=== PATIENT | female | born 1970 | race African-American/Black ===

== ENCOUNTER 2021-10-20 16:03 | Emergency (ER) | payer MEDICAID ==
[~2021-10-20] VITALS: Ht 157.5 cm; Wt 56.4 kg
[2021-10-20 17:05] LABS: BASO % 0.6 % (0.0-1.0); EOS # 0.1 10^3/uL (0.0-0.5); EOS % 0.8 % (0.0-3.0); HEMATOCRIT 37.8 % (36.0-47.0); HEMOGLOBIN 11.8 g/dl (12.0-15.5); LYMPH # 2.3 10^3/uL (1.5-5.0); LYMPH % 35.9 % (24.0-44.0); MEAN CORPUSCULAR HEMOGLOBIN 29.2 pg (27.0-33.0); MEAN CORPUSCULAR HGB CONC 31.2 g/dl (32.0-36.5); MEAN CORPUSCULAR VOLUME 93.6 fl (80.0-96.0); MONO # 0.4 10^3/uL (0.0-0.8); MONO % 5.9 % (2.0-8.0); NEUTROPHILS # 3.7 10^3/uL (1.5-8.5); NEUTROPHILS % 56.6 % (36.0-66.0); PLATELET COUNT, AUTOMATED 221 10^3/uL (150-450); RED BLOOD COUNT 4.04 10^6/uL (4.00-5.40); WHITE BLOOD COUNT 6.5 10^3/uL (4.0-10.0)
[2021-10-20 17:27] LABS: ALBUMIN 4.2 GM/DL (3.2-5.2); ALT/SGPT 15 U/L (12-78); BILIRUBIN,DIRECT < 0.1 MG/DL (0.0-0.2); BILIRUBIN,TOTAL 0.5 MG/DL (0.2-1.0); LIPASE 192 U/L (73-393); TOTAL PROTEIN 8.4 GM/DL (6.4-8.2)
[2021-10-20] MEDS ORDERED: TAMSULOSIN 0.4 MG CAP PO ONE (19:25)
[2021-10-20] MEDS ORDERED: FLOM0.4C39 PO (19:28)
[2021-10-20] MEDS ORDERED: KETO10TAB PO (19:28)
[2021-10-20 19:38] VITALS: BP 139/70
== END 2021-10-20 19:53 | disposition home or self-care (01) ==
LOC: M ED 16:03 → EDBD 16:03 → M ED 19:53
DX: N20.1 Calculus of ureter (principal); E11.9 Type 2 diabetes mellitus without complications